=== PATIENT | female | born 1970 | race Caucasian/White ===

== ENCOUNTER 2019-09-07 07:13 | Day surgery (SDC) | payer OTHER ==
[~2019-09-07] VITALS: Ht 160 cm; Wt 102.7 kg
[2019-09-07] MEDS ORDERED: PEPCID40 MG (07:45)
[2019-09-07] MEDS ORDERED: LEVSOD100 (07:46)
[2019-09-07] MEDS ORDERED: SERT100 (07:47)
[2019-09-07] MEDS ORDERED: VALA500 (07:47)
== END 2019-09-07 09:12 | disposition home or self-care (01) ==
LOC: ORSCSDS 07:13
PROVIDERS: Internal Medicine Gastroenterology
PROC: 0DB98ZX Excision of Duodenum, Via Natural or Artificial Opening Endoscopic, Diagnostic (ICD-10-PCS; principal; 2019-09-07 08:30)
PROC: 0DB68ZX Excision of Stomach, Via Natural or Artificial Opening Endoscopic, Diagnostic (ICD-10-PCS; principal; 2019-09-07 08:30)
DX: R10.13 Epigastric pain (principal); K76.0 Fatty (change of) liver, not elsewhere classified; I10 Essential (primary) hypertension; F41.8 Other specified anxiety disorders; E78.5 Hyperlipidemia, unspecified; Z87.891 Personal history of nicotine dependence; E66.01 Morbid (severe) obesity due to excess calories; Z68.41 Body mass index [BMI] 40.0-44.9, adult; Z79.899 Other long term (current) drug therapy
CPT/HCPCS: 88305; 88342; J0330; J0461; J2405; J2704; J7120

== ENCOUNTER → 2020-03-12 | Outpatient (CLI) | payer BC, OTHER ==
[~2020-03-12] MED LIST: LEVSOD100; PEPCID40 MG; SERT100; VALA500
== END ==
LOC: LAB 09:56 → LAB SHORT 09:56
DX: R30.0 Dysuria (principal); R10.9 Unspecified abdominal pain
CPT/HCPCS: 87086